=== PATIENT | female | born 1955 | race African-American/Black ===

== ENCOUNTER 2016-05-10 18:57 | Emergency (ER) | payer OTHER ==
[~2016-05-10] VITALS: Ht 162.6 cm; Wt 76.2 kg
[~2016-05-10 18:57] MED LIST: ACETAMINOPHEN-1 EAC1 ORAL; BENADRYL12.5 MG PO; COLACE100 MG ORAL; CYCLOBENZAPRINE10 MG ORAL; DICLOFENAC SODI75 MG ORAL; DOCUSATE SODIU100 MG PO; FUROSEMIDE20 M1 ORAL; FUROSEMIDE20 M1 PO; IBUPROFEN600 MG ORAL; KLONOPIN1 MG ORAL; LACTULOSE20 GM/301 ORAL; NAPROXEN500 M2 ORAL; NITROFURANTOIN100 M2 ORAL; NORCO 10-325 T1 EACH ORAL; NORCO 5-325 TA1 EACH ORAL; NORCO 5-325 TA1 EACH PO; NORVASC10 MG ORAL; NORVASC10 MG PO; NORVASC2.5 MG ORAL; NORVASC2.5 MG PO; ONDANSETRON ODT4 MG ORAL; PEPCID20 MG ORAL; PHENERGAN/CODE120 ML PO; PHENOBARBITAL; PHENOBARBITAL30 MG ORAL; POTASSIUM CHLO10 MEQ PO; QUETIAPINE FUMA25 MG PO; SEROQUEL200 MG ORAL; SEROQUEL25 MG ORAL; SEROQUEL400 MG ORAL; SOMA350 MG PO; TRAMADOL HCL50 MG ORAL; UNOBMED; VALACYCLOVIR500 MG ORAL; VIBRAMYCIN100 MG PO; VISTARIL50 MG ORAL; ZOFRAN ODT4 MG ORAL; ZOFRAN4 M1 ORAL; klonopin PO; phenobarbitol PO
[2016-05-10 19:21] VITALS: BP 135/87
[2016-05-10] MEDS ORDERED: Acetaminophen 500mg (ES) tab ORAL ONE ×2 (19:30→21:00)
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
[2016-05-10] MEDS ORDERED: TYLENOL EXTRA500 MG ORAL (20:43)
[2016-05-10 20:48] VITALS: BP 135/87
--- NOTE | 2016-05-11 10:07 | Diagnostic Imaging Report ---
Indications: hip pain Findings: Two views of the left hip were obtained. No acute fracture or malalignment appreciated. There is a deformity of the visualized portion of the left femoral shaft presumably from prior trauma. Impression: No acute injury identified
== END 2016-05-10 20:49 | disposition home or self-care (01) ==
LOC: EDBD 18:57 → EMR 19:00
DX: S70.02XA Contusion of left hip, initial encounter (principal); Y08.89XA Assault by other specified means, initial encounter; Y92.511 Restaurant or cafe as the place of occurrence of the external cause; I10 Essential (primary) hypertension; F20.9 Schizophrenia, unspecified
CPT/HCPCS: 73502; 99283

== ENCOUNTER 2016-07-06 07:09 | Emergency (ER) | payer OTHER ==
[~2016-07-06] VITALS: Ht 167.6 cm; Wt 104.3 kg
[~2016-07-06 07:09] MED LIST changes: +TYLENOL EXTRA500 MG ORAL
[2016-07-06] MEDS ORDERED: AMOXICILLIN500 MG ORAL (07:43)
[2016-07-06] MEDS ORDERED: PROMETHAZINE-D118 ML ORAL (07:43)
[2016-07-06 07:48] VITALS: BP 112/78
--- NOTE | 2016-07-06 07:51 | Emergency Room Report ---
History of Present Illness General Chief Complaint: Sore Throat Source: Patient Present Illness HPI Patient is a 60-year-old female presented after increased sore throat and cough. The patient gradual onsetOf symptoms associated with some intermittently productive cough. The patient had not been having any fever. She had gradual onset of low back pain. She denied any recent trauma. Patient had previous similar symptoms. She reported having increased postnasal drip with yellow colored sputum. She reported having some moderate facial pain. Allergies: Coded Allergies: No Known Allergies (Verified , 07/30/11) Patient History Past Medical History: see triage record Last Menstrual Period: na Reviewed Nursing Documentation: PMH: Agreed, PSxH: Agreed Nursing Documentation-PMH Past Medical History: No History, Except For Hx Cardiac Problems: Yes - HIGH CHOLESTEROL Hx Hypertension: Yes Hx Cancer: No Hx Gastrointestinal Problems: No Hx Neurological Problems: No - Chronic back pain, left knee absent Hx Seizures: No Hx Dizziness: Yes Review of Systems All Other Systems: negative except mentioned in HPI Physical Exam Vital Signs Date Time Temp Pulse Resp B/P Pulse Ox O2 Delivery O2 Flow Rate FiO2 07/06/16 07:18 98.2 88 20 112/78 99 Room Air General Appearance: well appearing, no apparent distress, alert, GCS 15 Head: normocephalic, atraumatic ENT: hearing grossly normal, normal pharynx, normal voice Neck: full range of motion, supple Respiratory: lungs clear, normal breath sounds, no respiratory distress, speaking full sentences Gastrointestinal: normal inspection, normal bowel sounds, non tender, soft Musculoskeletal: normal inspection, back normal, no calf tenderness Neurologic: normal inspection, alert, oriented x3, responsive, motor coach operator III-XII nml as tested, normal gait Psychiatric: normal inspection, mood/affect normal Skin: no rash Medical Decision Making Diagnostic Impression: Primary Impression: Opiate dependence Additional Impressions: Chronic back pain Pharyngitis ER Course Patient presented for sore throat.Differential diagnosis included but was not limited to meningitis, exudative tonsillitis, retropharyngeal abscess, epiglottitis, strep pharyngitis. Patient's benign exam and does not appear to require any further imaging or laboratory testing at this time. The patient presented chronic back pain this does not appear to require any narcotic pain medications. Patient was offered ibuprofen however she declined. The patient was given prescriptions for cough medication. The patient is advised to follow up with primary care doctor in 1-2 days. Patient is advised to return if any worsening condition or if any changes in status that are concerning. Last Vital Signs Date Time Temp Pulse Resp B/P Pulse Ox O2 Delivery O2 Flow Rate FiO2 07/06/16 07:18 98.2 88 20 112/78 99 Room Air Status: improved Disposition: HOME, SELF-CARE Condition: Stable Scripts Amoxicillin* (AMOXIL*) 500 Mg Capsule 500 MG ORAL THREE TIMES A DAY, #21 CAP Prov: Mingo Gaston 07/06/16 D-Methorphan Hb/Prometh Hcl* (PROMETHAZINE-DM SYRUP*) 118 Ml Syrup 5 ML ORAL Q6H Y for For Cough, #120 ML 0 Refills Prov: Mingo Gaston 07/06/16 Patient Instructions: Viral Respiratory Infection Mingo Gaston Jul 06, 2016 07:51
== END 2016-07-06 08:15 | disposition home or self-care (01) ==
LOC: EMR 07:52
DX: J02.9 Acute pharyngitis, unspecified (principal); G89.29 Other chronic pain; M54.9 Dorsalgia, unspecified; F11.20 Opioid dependence, uncomplicated; I10 Essential (primary) hypertension; E78.00 Pure hypercholesterolemia, unspecified
CPT/HCPCS: 99284

== ENCOUNTER 2016-09-07 10:25 | Emergency (ER) | payer OTHER ==
[~2016-09-07] VITALS: Ht 162.6 cm; Wt 77.1 kg
[2016-09-07 10:25] VITALS: BP 130/84
[~2016-09-07 10:25] MED LIST changes: +AMOXICILLIN500 MG ORAL; +PROMETHAZINE-D118 ML ORAL; +QUETIAPINE FUMA25 MG ORAL
[2016-09-07] MEDS ORDERED: Tylenol #4 Tab (300mg/60mg) ORAL ONE (10:45)
--- NOTE | 2016-09-07 10:57 | Emergency Room Report ---
History of Present Illness General Chief Complaint: General Complaint Source: Patient, Medical Record, EMS Present Illness HPI 61YOF BIBEMS with 3 days of left sided non-radiating chest pain. Worse with moving, worse with pushing on it. No associated fever/chills, SOB, abd pain, nausea/vomiting. Requesting refill for T#4 and Norvasc 10mg. Hasnt taken in 3 days. Doesnt currrently have PMD. History of HTN. Denies ETOH, smoking, drug use. Denies trauma. Allergies: Coded Allergies: No Known Allergies (Verified , 07/30/11) Patient History Past Medical History: HTN Past Surgical History: none Pertinent Family History: none Now: No Immunizations: UTD Reviewed Nursing Documentation: PMH: Agreed, PSxH: Agreed Nursing Documentation-PMH Past Medical History: No History, Except For Hx Cardiac Problems: Yes - HIGH CHOLESTEROL Hx Hypertension: Yes Hx Cancer: No Hx Gastrointestinal Problems: No History Of Psychiatric Problem: Yes Hx Neurological Problems: No - Chronic back pain, left knee absent Hx Seizures: No Hx Dizziness: Yes Review of Systems All Other Systems: negative except mentioned in HPI Physical Exam Vital Signs Date Time Temp Pulse Resp B/P Pulse Ox O2 Delivery O2 Flow Rate FiO2 09/07/16 10:18 98.4 100 20 130/84 100 Room Air Sp02 EP Interpretation: reviewed, normal General Appearance: normal inspection, well appearing, no apparent distress, alert, GCS 15, non-toxic, other - Very well appearing, smiling. Interactive from strether Head: normocephalic, atraumatic Eyes: bilateral eye EOMI, bilateral eye PERRL ENT: normal ENT inspection, hearing grossly normal, normal voice Neck: normal inspection, full range of motion, supple, no bony tend Respiratory: normal inspection, lungs clear, normal breath sounds, no respiratory distress, no retraction, no wheezing, other - Chest pain reproducible on palpation, chest symmetrical Cardiovascular #1: regular rate, rhythm, no edema Gastrointestinal: normal inspection, normal bowel sounds, non tender, soft, no guarding, no hernia Genitourinary: no CVA tenderness Musculoskeletal: normal inspection, back normal, normal range of motion, Kim' s Sign negative Neurologic: normal inspection, alert, oriented x3, responsive, psychological assistant III-XII nml as tested, motor strength/tone normal, speech normal Psychiatric: normal inspection, judgement/insight normal, mood/affect normal Skin: normal inspection Lymphatic: normal inspection Medical Decision Making Diagnostic Impression: Primary Impression: Chest wall pain Additional Impression: Encounter for medication refill ER Course Chest wall pain - VSS. Afebrile. - Reproducible, worse with movement. - 3 days duration. - ECG is NSR, no ischemia. Unlikely ACS - Lungs CTAB - no clinical signs of PNA - Hisory of narcotics seeking behavior and opiod dependence - Norvasc refileld - T#4 also refilled DC home EKG Diagnostic Results Rate: normal Rhythm: NSR ST Segments: no acute changes ASA given to the pt in ED: No Last Vital Signs Date Time Temp Pulse Resp B/P Pulse Ox O2 Delivery O2 Flow Rate FiO2 09/07/16 10:18 98.4 100 20 130/84 100 Room Air Status: improved Disposition: HOME, SELF-CARE Referrals: [facility],REFERRING (PCP) JOSÉ MIGUEL MARX M.D. September 07, 2016 10:57
[2016-09-07] MEDS ORDERED: NORVASC10 MG ORAL (10:59)
[2016-09-07] MEDS ORDERED: [UNRECOGNIZED DRUG - OTHER] PO (10:59)
[2016-09-07 11:15] VITALS: BP 130/84
--- NOTE | 2016-09-08 18:36 | Cardiology Report ---
APPROVED REPORT EKG Measurement Heart [id number] Normal sinus rhythm Possible Left atrial enlargement Low voltage QRS Borderline ECG
== END 2016-09-07 11:15 | disposition home or self-care (01) ==
LOC: EDBD 10:25 → EMR 10:40
DX: R07.9 Chest pain, unspecified (principal); Z76.0 Encounter for issue of repeat prescription; I10 Essential (primary) hypertension
CPT/HCPCS: 93005; 99283

== ENCOUNTER 2016-09-20 12:43 | Emergency (ER) | payer OTHER ==
[~2016-09-20] VITALS: Ht 167.6 cm; Wt 111.1 kg
[~2016-09-20 12:43] MED LIST changes: +[UNRECOGNIZED DRUG - OTHER] PO
[2016-09-20] MEDS ORDERED: SEROQUEL200 MG ORAL (13:16)
[2016-09-20] MEDS ORDERED: ROBAXIN-750750 MG PO (13:16)
[2016-09-20] MEDS ORDERED: NAPROXEN375 M2 ORAL (13:16)
[2016-09-20 13:17] VITALS: BP 130/90
--- NOTE | 2016-09-20 13:17 | Emergency Room Report ---
History of Present Illness General Chief Complaint: To Be Triaged Present Illness HPI 61 y/o female c/o med refill and chronic back pain x 2 months. States she is between PCPs and needs refill on 200mg Seroquel she takes 1 tab PO QHS. States she takes with good compliance w/o AE and with good control of anxiety / depression. States that she also has chronic back pain assoc w/ muscle spasms. States pain is worse with movement and better with heat and massage. Not taking any medications currently. No provoking or relieving factors. Denies any SI, HI , AH or VH. Denies any lower extremity weakness, incontinence, foot drop, saddle anesthesia, numbness, or paralysis. Allergies: Coded Allergies: No Known Allergies (Verified , 07/30/11) Patient History Past Medical History: see triage record Immunizations: UTD Reviewed Nursing Documentation: PMH: Agreed, PSxH: Agreed Nursing Documentation-PMH Hx Cardiac Problems: Yes - HIGH CHOLESTEROL Hx Hypertension: Yes Hx Cancer: No Hx Gastrointestinal Problems: No Hx Neurological Problems: No - Chronic back pain, left knee absent Hx Seizures: No Hx Dizziness: Yes Review of Systems All Other Systems: negative except mentioned in HPI Physical Exam Vital Signs Date Time Temp Pulse Resp B/P Pulse Ox O2 Delivery O2 Flow Rate FiO2 09/20/16 13:08 98.1 78 16 130/90 98 Room Air Sp02 EP Interpretation: reviewed, normal General Appearance: no apparent distress, alert, GCS 15, non-toxic Head: normocephalic, atraumatic Eyes: bilateral eye PERRL, bilateral eye normal inspection ENT: normal ENT inspection Neck: full range of motion, no bony tend, supple/symm/no masses Respiratory: chest non-tender, lungs clear, normal breath sounds, speaking full sentences Cardiovascular #1: regular rate, rhythm, no edema Musculoskeletal: back normal, gait/station normal, normal range of motion, tender - perispinal tenderness assoc w/ muscle spasms along lumbar and cervical spine Neurologic: alert, oriented x3, responsive, motor strength/tone normal, sensory intact, speech normal Psychiatric: judgement/insight normal, memory normal, mood/affect normal, no suicidal/homicidal ideation Skin: normal color, no rash, warm/dry, well hydrated Medical Decision Making PA Attestation Dr. Davison is my supervising physician with whom patient management has been discussed with. Diagnostic Impression: Primary Impression: Lumbago Qualified Codes: M54.5 - Low back pain; G89.29 - Other chronic pain Additional Impressions: Cervicalgia Muscle spasm of back Medication refill ER Course Pt. presents to the ED c/o med refill and back pain Ddx considered but are not limited to sciatica, spinal stenosis, contusion, fracture, muscle spasm, strain Vital signs: are WNL, pt. is afebrile H&PE are most consistent with muscle spasm ORDERS: none required at this time, the diagnosis is clinical ED INTERVENTIONS: none required at this time. DISCHARGE: At this time pt. is stable for d/c to home. Will provide printed patient care instructions, and any necessary prescriptions. Care plan and follow up instructions have been discussed with the patient prior to discharge. Disposition: HOME, SELF-CARE Condition: Stable Scripts Naproxen* (NAPROXEN*) 375 Mg Tablet.dr 375 MG ORAL TWICE A DAY, #20 TAB Prov: RADHA BRADY.ASpencer 09/20/16 Methocarbamol* (ROBAXIN-750*) 750 Mg Tablet 750 MG PO TID, #30 TAB 0 Refills Prov: RADHA BRADY P.A. 09/20/16 Quetiapine Fumarate* (SEROQUEL*) 200 Mg Tablet 200 MG ORAL QHS, #15 TAB Prov: RADHA BRADY P.A. 09/20/16 Patient Instructions: Muscle Cramps and Spasms Additional Instructions: Take medication as directed. Advise patient to use RICE therapy and avoid exercises for the next 2-3 weeks to help rest the back. Patient instructed to massage the muscles that are tight or tense, put ice for 5-7 minutes or a frozen bag of peas or cold gel pack on the area for 20 minutes at a time, a few times a day, put heat on the area to reduce pain and stiffness by either taking a hot shower or hot bath, or put a hot towel on the area for no more than 20 minutes at a time. Patient instructed to not use anything too hot that could burn your skin. RADHA BRADY Sep 20, 2016 13:17
[2016-09-20] MEDS ORDERED: Norco 5mg/325mg tab ORAL ONE (13:30)
== END 2016-09-20 13:50 | disposition home or self-care (01) ==
LOC: EMR 13:10
DX: G89.29 Other chronic pain (principal); M54.5 Low back pain; M54.2 Cervicalgia; M62.830 Muscle spasm of back; Z76.0 Encounter for issue of repeat prescription; I10 Essential (primary) hypertension; Z89.522 Acquired absence of left knee
CPT/HCPCS: 99284

== ENCOUNTER 2016-11-24 12:47 | Emergency (ER) | payer OTHER ==
[~2016-11-24] VITALS: Ht 170.2 cm; Wt 122.5 kg
[~2016-11-24 12:47] MED LIST changes: +NAPROXEN375 M2 ORAL; +ROBAXIN-750750 MG PO
[2016-11-24 13:01] VITALS: BP 138/83
[2016-11-24] MEDS ORDERED: AMLODIPINE BESY10 MG ORAL (13:49)
[2016-11-24 13:55] VITALS: BP 138/83
--- NOTE | 2016-11-24 13:59 | Emergency Room Report ---
History of Present Illness General Chief Complaint: Medication Refill Source: Patient Present Illness HPI 61 yo F hx of chronic back pain, HTN, p/w medication refill. states she has not had her norvasc x 4 days. she has been taking 10mg daily x 10 years as per patient. she does not have a PMD but is trying to get one from [facility]. she has been to the ED multiple times for various complaints. today denies any fever chills cp sob abd pain. no complaint except requesting med refill Allergies: Coded Allergies: No Known Allergies (Verified , 07/30/11) Patient History Past Medical History: see triage record Past Surgical History: none Now: No Nursing Documentation-PMH Hx Cardiac Problems: No Hx Hypertension: Yes Hx Pacemaker: No Hx Asthma: No Hx COPD: No Hx Diabetes: No Hx Cancer: No Hx Gastrointestinal Problems: No Hx Dialysis: No Hx Seizures: No Hx Dizziness: Yes Physical Exam Vital Signs Date Time Temp Pulse Resp B/P Pulse Ox O2 Delivery O2 Flow Rate FiO2 11/24/16 12:57 98.4 80 14 138/83 95 Room Air General Appearance: normal inspection, well appearing, no apparent distress, alert, GCS 15, non-toxic Head: normocephalic, atraumatic Eyes: bilateral eye EOMI, bilateral eye PERRL, bilateral eye normal inspection ENT: normal ENT inspection, normal pharynx, normal voice, moist mucus membranes Neck: normal inspection, full range of motion, supple, no bony tend Respiratory: normal inspection, lungs clear, normal breath sounds, no respiratory distress, no retraction, no wheezing, speaking full sentences, chest symmetrical Cardiovascular #1: normal inspection, regular rate, rhythm, no edema, normal capillary refill Gastrointestinal: normal inspection, non tender, soft, non-distended, no guarding Musculoskeletal: normal inspection, back normal, normal range of motion, non- tender Neurologic: normal inspection, alert, oriented x3, responsive, data analytics architect III-XII nml as tested, motor strength/tone normal, sensory intact, normal gait, speech normal Medical Decision Making Diagnostic Impression: Primary Impression: Encounter for medication refill ER Course 61 yo F here to med refill for norvasc norvasc rx, pmd follow up Last Vital Signs Date Time Temp Pulse Resp B/P Pulse Ox O2 Delivery O2 Flow Rate FiO2 11/24/16 13:01 98.4 80 14 138/83 95 Room Air Disposition: HOME, SELF-CARE Condition: Stable Scripts Amlodipine Besylate* (AMLODIPINE BESYLATE*) 10 Mg Tablet 10 MG ORAL DAILY for 30 Days, #30 TAB Prov: Suzy Crow M.D. 11/24/16 Patient Instructions: Medicine Refill at the Emergency Department Suzy Crow M.D. Nov 24, 2016 13:59
== END 2016-11-24 14:00 | disposition home or self-care (01) ==
LOC: EMR 13:36
DX: I10 Essential (primary) hypertension (principal); Z76.0 Encounter for issue of repeat prescription; G89.29 Other chronic pain
CPT/HCPCS: 99282

== ENCOUNTER 2016-12-08 16:22 | Emergency (ER) | payer OTHER ==
[~2016-12-08] VITALS: Ht 167.6 cm; Wt 113.4 kg
[~2016-12-08 16:22] MED LIST changes: +AMLODIPINE BESY10 MG ORAL
[2016-12-08 17:22] LABS: BASOPHILS % (AUTO) 1.7 % (0.0-2.0); EOSINOPHILS % (AUTO) 0.2 % (0.0-3.0); LYMPHOCYTES % (AUTO) 33.2 % (20.0-45.0); MEAN CORPUSCULAR HEMOGLOBIN 34.5 PG (27.0-31.0); MEAN CORPUSCULAR VOLUME 96 FL (80-99); MEAN PLATELET VOLUME 5.9 FL (6.5-10.1); MONOCYTES % (AUTO) 9.1 % (1.0-10.0); NEUTROPHILS % (AUTO) 55.8 % (45.0-75.0); PLATELET COUNT 272 K/UL (150-450); RED BLOOD COUNT 4.12 M/UL (4.20-5.40); RED CELL DISTRIBUTION WIDTH 11.6 % (11.6-14.8); WHITE BLOOD COUNT 4.7 K/UL (4.8-10.8)
[2016-12-08 17:25] LABS: APPEARANCE,URINE SLIGHTLY CLOUDY; KETONES,URINE 1+ (NEGATIVE); LEUKOCYTE ESTERASE ,URINE 3+ (NEGATIVE); NITRITE,URINE NEGATIVE (NEGATIVE); PH,URINE 5 (4.5-8.0); PROTEIN,URINE 2+ (NEGATIVE); UROBILINOGEN,URINE 4 MG/DL (0.0-1.0)
[2016-12-08 17:35] LABS: PROTHROMBIN TIME 10.6 SEC (9.30-11.50)
[2016-12-08 17:44] LABS: ALANINE AMINOTRANSFERASE 8 U/L (3-33); ALBUMIN/GLOBULIN RATIO 1.5 (1.0-2.7); AMYLASE 72 U/L (10-110); ANION GAP 15 (5-15); ASPARTATE AMINO TRANSFERASE 13 U/L (5-40); CARBON DIOXIDE 25 mEQ/L (20-30); CHLORIDE 103 mEQ/L (98-107); CREATININE 0.9 mg/dL (0.5-0.9); GLOMERULAR FILTRATION RATE > 60 mL/min (>60); HEMOLYSIS 26; LIPASE 26 U/L (< 60); POTASSIUM 3.9 mEQ/L (3.4-4.9); SODIUM 143 mEQ/L (135-145); TOTAL PROTEIN 7.7 g/dL (6.6-8.7)
[2016-12-08 17:48] LABS: AMORPHOUS SEDIMENT,UR FEW /LPF; BACTERIA,URINE MODERATE /HPF; ICTOTEST NEGATIVE; RBC,URINE 0-2 /HPF (0 - 2); SQUAMOUS EPITHELIAL CELL,UR FEW /LPF (NONE/OCC)
[2016-12-08] MEDS ORDERED: Morphine Sulfate 2mg/ml Inj IVP ONE (18:00)
[2016-12-08] MEDS ORDERED: NITROFURANTOIN100 M2 ORAL (18:03)
[2016-12-08] MEDS ORDERED: ACETAMINOPHEN-1 EAC1 ORAL (18:03)
[2016-12-08 18:36] VITALS: BP 153/78
--- NOTE | 2016-12-08 22:00 | Emergency Room Report ---
History of Present Illness General Chief Complaint: Abdominal Pain Source: Patient, Medical Record Present Illness HPI The patient is a 61-year-old f visiting for abd pain. She states that she has a history of pancreatitis and pain began 2 months prior. Pain is described as an 8/10 dull ache in the mid/left upper abdomen and does not radiate. She also admits to dysuria. No known provoking or relieving factors. She denies other symptoms including nausea, vomiting, fever, chills, CP, SOB Allergies: Coded Allergies: No Known Allergies (Verified , 07/30/11) Patient History Past Medical History: see triage record Pertinent Family History: none Reviewed Nursing Documentation: PMH: Agreed, PSxH: Agreed Nursing Documentation-PMH Past Medical History: No History, Except For Hx Cardiac Problems: No Hx Hypertension: Yes - High cholesterol Hx Pacemaker: No Hx Asthma: No Hx COPD: No Hx Diabetes: No Hx Cancer: No Hx Dialysis: No Hx Seizures: No Hx Dizziness: Yes Review of Systems All Other Systems: negative except mentioned in HPI Physical Exam Vital Signs Date Time Temp Pulse Resp B/P Pulse Ox O2 Delivery O2 Flow Rate FiO2 12/08/16 16:34 99.3 113 16 134/81 96 12/08/16 18:36 Room Air Sp02 EP Interpretation: reviewed, normal General Appearance: no apparent distress, alert, GCS 15, non-toxic Head: normocephalic, atraumatic Eyes: bilateral eye PERRL, bilateral eye normal inspection ENT: hearing grossly normal, normal pharynx, no angioedema, normal voice Neck: full range of motion, supple/symm/no masses Respiratory: chest non-tender, lungs clear, normal breath sounds, no accessory muscle use, speaking full sentences Cardiovascular #1: regular rate, rhythm, no edema Gastrointestinal: soft, no mass, no guarding, tenderness - TTP over the suprapubic and epigastric regions Rectal: deferred Musculoskeletal: back normal, gait/station normal, normal range of motion, non- tender Neurologic: alert, oriented x3, responsive, motor strength/tone normal, sensory intact, speech normal Psychiatric: judgement/insight normal, memory normal, mood/affect normal, no suicidal/homicidal ideation Skin: normal color, no rash, warm/dry, well hydrated Lymphatic: no adenopathy Medical Decision Making PA Attestation Dr. Alaniz is my supervising physician. Patient management was discussed with my supervising physician Diagnostic Impression: Primary Impression: UTI (urinary tract infection) Qualified Codes: N30.01 - Acute cystitis with hematuria ER Course The patient is a 61-year-old female presenting for abdominal pain Differential diagnoses considered include but not limited to gastritis, pancreatitis, appendicitis, UTI, among others Physical exam: Afebrile. No apparent distress There is tenderness to palpation over the epigastric and suprapubic regions only. No guarding. Nondistended. No CVA tenderness. Otherwise unremarkable Labs: All blood work is unremarkable. No leukocytosis. Lipase within normal limits. Urinalysis shows signs of infection The patient will be discharged home with a prescription for antibiotics. ER precautions are given Laboratory Tests Test 12/08/16 17:09 White Blood Count 4.7 K/UL (4.8-10.8) L Red Blood Count 4.12 M/UL (4.20-5.40) L Hemoglobin 14.2 G/DL (12.0-16.0) Hematocrit 39.4 % (37.0-47.0) Mean Corpuscular Volume 96 FL (80-99) Mean Corpuscular Hemoglobin 34.5 PG (27.0-31.0) H Mean Corpuscular Hemoglobin Concent 36.0 G/DL (32.0-36.0) Red Cell Distribution Width 11.6 % (11.6-14.8) Platelet Count 272 K/UL (150-450) Mean Platelet Volume 5.9 FL (6.5-10.1) L Neutrophils (%) (Auto) 55.8 % (45.0-75.0) Lymphocytes (%) (Auto) 33.2 % (20.0-45.0) Monocytes (%) (Auto) 9.1 % (1.0-10.0) Eosinophils (%) (Auto) 0.2 % (0.0-3.0) Basophils (%) (Auto) 1.7 % (0.0-2.0) Prothrombin Time 10.6 SEC (9.30-11.50) Prothrombin Time INR 1.0 (0.9-1.1) PTT 25 SEC (23-33) Urine Color Brown Urine Appearance Slightly cloudy Urine pH 5 (4.5-8.0) Urine Specific [place] 1.025 (1.005-1.035) Urine Protein 2+ (NEGATIVE) H Urine Glucose (UA) Negative (NEGATIVE) Urine Ketones 1+ (NEGATIVE) H Urine Occult Blood Negative (NEGATIVE) Urine Nitrite Negative (NEGATIVE) Urine Bilirubin 1+ (NEGATIVE) H Urine Ictotest Negative Urine Urobilinogen 4 MG/DL (0.0-1.0) H Urine Leukocyte Esterase 3+ (NEGATIVE) H Urine RBC 0-2 /HPF (0 - 2) Urine WBC 5-10 /HPF (0 - 2) H Urine Squamous Epithelial Cells Few /LPF (NONE/OCC) Urine Amorphous Sediment Few /LPF (NONE) H Urine Bacteria Moderate /HPF (NONE) H Sodium Level 143 mEQ/L (135-145) Potassium Level 3.9 mEQ/L (3.4-4.9) Chloride Level 103 mEQ/L (98-107) Carbon Dioxide Level 25 mEQ/L (20-30) Anion Gap 15 (5-15) Blood Urea Nitrogen 17 mg/dL (7-23) Creatinine 0.9 mg/dL (0.5-0.9) Estimate Glomerular Filtration Rate > 60 mL/min (>60) Glucose Level 138 mg/dL (74-106) H Calcium Level 10.0 mg/dL (8.6-10.2) Total Bilirubin 0.4 mg/dL (0.0-1.2) Aspartate Amino Transferase (AST) 13 U/L (5-40) Alanine Aminotransferase (ALT) 8 U/L (3-33) Alkaline Phosphatase 77 U/L (35-104) Total Protein 7.7 g/dL (6.6-8.7) Albumin 4.7 g/dL (3.5-5.2) Globulin 3.0 g/dL Albumin/Globulin Ratio 1.5 (1.0-2.7) Amylase Level 72 U/L (10-110) Lipase 26 U/L (< 60) Lab Results Impression All blood work is unremarkable. No leukocytosis. Lipase within normal limits. Urinalysis shows signs of infection Last Vital Signs Date Time Temp Pulse Resp B/P Pulse Ox O2 Delivery O2 Flow Rate FiO2 12/08/16 18:36 93 20 153/78 98 Room Air 12/08/16 18:36 99.0 Status: improved Disposition: HOME, SELF-CARE Condition: Improved Scripts Nitrofurantoin Monohyd/M-Cryst* (MACROBID 100 MG*) 100 Mg Capsule 100 MG ORAL EVERY 12 HOURS, #14 CAP Prov: LESLYE NICHOLAS 12/08/16 Acetaminophen With Codeine (T#3) (TYLENOL #3 TAB*) Y Tab 1 TAB ORAL Q6HR Y for For Pain, #10 TAB Prov: LESLYE NICHOLAS 12/08/16 Referrals: [facility],REFERRING (PCP) Patient Instructions: Urinary Tract Infection Additional Instructions: I discussed my findings with the patient. All questions and concerns have been answered. Treatment and medication compliance have been addressed. I advised the patient that they need to follow up with PMD in 3-5 days. Return to ED if symptoms worsen, new symptoms arise, or if needed for any reason. Patient verbalized understanding of discharge instructions. LESLYE NICHOLAS Dec 08, 2016 22:00
== END 2016-12-08 18:40 | disposition home or self-care (01) ==
LOC: EMR 16:52
DX: N39.0 Urinary tract infection, site not specified (principal); I10 Essential (primary) hypertension
CPT/HCPCS: 36415; 80053; 81003; 82150; 83690; 85025; 85610; 85730; 87086; 96374; 96375; 99284; J2270

== ENCOUNTER 2016-12-17 14:52 | Emergency (ER) | payer OTHER ==
[~2016-12-17] VITALS: Ht 167.6 cm; Wt 122.5 kg
[2016-12-17] MEDS ORDERED: Lidocaine 2% Visc 15ml soln ORAL ONE (15:15)
[2016-12-17] MEDS ORDERED: Mylanta II UD 30ml ORAL ONE (15:15)
[2016-12-17] MEDS ORDERED: Dicyclomine HCl 10mg/5ml oral soln ORAL ONE (15:15)
[2016-12-17 15:44] LABS: APPEARANCE,URINE CLEAR; KETONES,URINE 3+ (NEGATIVE); LEUKOCYTE ESTERASE ,URINE 3+ (NEGATIVE); NITRITE,URINE NEGATIVE (NEGATIVE); PH,URINE 5 (4.5-8.0); PROTEIN,URINE 2+ (NEGATIVE); UROBILINOGEN,URINE NORMAL MG/DL (0.0-1.0)
[2016-12-17 15:47] LABS: ICTOTEST POSITIVE
[2016-12-17 15:49] LABS: BASOPHILS % (AUTO) 1.4 % (0.0-2.0); EOSINOPHILS % (AUTO) 0.2 % (0.0-3.0); LYMPHOCYTES % (AUTO) 31.1 % (20.0-45.0); MEAN CORPUSCULAR HEMOGLOBIN 35.1 PG (27.0-31.0); MEAN CORPUSCULAR HGB CONC 37.4 G/DL (32.0-36.0); MEAN CORPUSCULAR VOLUME 94 FL (80-99); MEAN PLATELET VOLUME 6.3 FL (6.5-10.1); MONOCYTES % (AUTO) 9.2 % (1.0-10.0); NEUTROPHILS % (AUTO) 58.1 % (45.0-75.0); PLATELET COUNT 225 K/UL (150-450); RED BLOOD COUNT 3.76 M/UL (4.20-5.40); RED CELL DISTRIBUTION WIDTH 11.6 % (11.6-14.8); WHITE BLOOD COUNT 5.3 K/UL (4.8-10.8)
[2016-12-17 15:52] LABS: BACTERIA,URINE FEW /HPF; MUCUS,URINE MANY /LPF (NONE/OCC); SQUAMOUS EPITHELIAL CELL,UR FEW /LPF (NONE/OCC)
[2016-12-17 15:54] LABS: ALANINE AMINOTRANSFERASE 6 U/L (3-33); ALBUMIN/GLOBULIN RATIO 1.3 (1.0-2.7); ANION GAP 14 (5-15); ASPARTATE AMINO TRANSFERASE 9 U/L (5-40); CALCIUM 9.3 mg/dL (8.6-10.2); CARBON DIOXIDE 24 mEQ/L (20-30); CHLORIDE 103 mEQ/L (98-107); CREATININE 0.8 mg/dL (0.5-0.9); GLOMERULAR FILTRATION RATE > 60 mL/min (>60); HEMOLYSIS 4; LIPASE 26 U/L (< 60); SODIUM 141 mEQ/L (135-145); TOTAL PROTEIN 6.7 g/dL (6.6-8.7)
[2016-12-17] MEDS ORDERED: Phenazopyridine 200mg tab ORAL ONE (16:15)
--- NOTE | 2016-12-17 16:17 | Emergency Room Report ---
History of Present Illness General Chief Complaint: Abdominal Pain Source: Patient Present Illness HPI 61-year-old female presents to the emergency department complaining of epigastric, and right upper quadrant abdominal pain that is 8/10 in severity and described as cramping. Patient denies fevers, chills, nausea, vomiting. Patient reports history of chronic pancreatitis as well as history of GERD. reports recent abx use for UTI, however continues to have dysuria and frequency. Denies constipation, diarrhea, blood in the stool, or black tarry stools. Denies recent travel or ill contacts. Denies rash. Denies CP, Palpitations, LOC, AMS, dizziness, Changes in Vision, Sensation, paresthesias, or a sudden severe headache. Allergies: Coded Allergies: No Known Allergies (Verified , 07/30/11) Patient History Past Medical History: see triage record Past Surgical History: none Pertinent Family History: none Now: No Immunizations: UTD Reviewed Nursing Documentation: PMH: Agreed, PSxH: Agreed Nursing Documentation-PMH Past Medical History: No History, Except For Hx Cardiac Problems: Yes Hx Hypertension: Yes Hx Pacemaker: No Hx Asthma: No Hx COPD: No Hx Diabetes: No Hx Cancer: No Hx Dialysis: No Hx Seizures: Yes Hx Dizziness: Yes Review of Systems All Other Systems: negative except mentioned in HPI Physical Exam Vital Signs Date Time Temp Pulse Resp B/P (MAP) Pulse Ox O2 Delivery O2 Flow Rate FiO2 12/17/16 14:47 97.7 108 16 116/73 99 Room Air Sp02 EP Interpretation: reviewed, normal General Appearance: no apparent distress, alert, GCS 15, non-toxic Head: normocephalic, atraumatic Eyes: bilateral eye normal inspection, bilateral eye PERRL ENT: hearing grossly normal, normal voice Neck: full range of motion Respiratory: lungs clear, normal breath sounds, speaking full sentences Cardiovascular #1: regular rate, rhythm Gastrointestinal: normal bowel sounds, soft, no guarding, no rebound, tenderness - mild ttp to deep palpation in the epigastric area., other - Negative [place] signs, Negative MacBurney's sign, Negative Rosvigns Sign, Negative Psoas, No Peritoneal signs. mild ttp to deep palpation in the epigastric area. Rectal: deferred Genitourinary: normal inspection, no CVA tenderness Musculoskeletal: back normal, gait/station normal, normal range of motion, non- tender Neurologic: alert, oriented x3, responsive, motor strength/tone normal, sensory intact, speech normal Psychiatric: judgement/insight normal, memory normal, mood/affect normal, no suicidal/homicidal ideation Reflexes: 4+ bicep (R), 4+ bicep (L), 4+ tricep (R), 4+ tricep (L), 4+ knee (R) , 4+ knee (L) Skin: normal color, no rash, warm/dry, well hydrated Lymphatic: no adenopathy Medical Decision Making PA Attestation Dr. Davison is my supervising Physician whom patient management has been discussed with. Diagnostic Impression: Primary Impression: Abdominal pain Qualified Codes: R10.11 - Right upper quadrant pain Additional Impression: UTI (urinary tract infection) Qualified Codes: N30.01 - Acute cystitis with hematuria ER Course 61-year-old female presents to the emergency department complaining of epigastric, and right upper quadrant abdominal pain that is 8/10 in severity and described as cramping. Patient denies fevers, chills, nausea, vomiting. Patient reports history of chronic pancreatitis as well as history of GERD. reports recent abx use for UTI, however continues to have dysuria and frequency. Denies constipation, diarrhea, blood in the stool, or black tarry stools. Denies recent travel or ill contacts. Denies rash. Denies CP, Palpitations, LOC, AMS, dizziness, Changes in Vision, Sensation, paresthesias, or a sudden severe headache. Ddx considered but are not limited to Diverticulitis, acute appy, diarrhea,UC, PUD, GE, pancreatitis, gallstone Vital signs: are WNL, pt. is afebrile, NAD, non-toxic in appearance. H&PE are most consistent with gastritis, I do not suspect gallbladder etiology due to benign physical exam, and pancreatitis is of low suspicion given pt. previous work up last week for same cc was unremarkable, will do basic abdominal labs. CT or US not indicated at this time. ORDERS: -CBC, CMP, lipase, -UA: moderate elevated WBC's and Leukocytes with presence of bacteria indicating continued infection. ED INTERVENTIONS: -GI Cocktail -Zantac PO -Pyridium PO Pt. is well known to the ED for drug seeking-behavior. review of pt. previous labs done last week were unremarkable other than UTI. - final culture shows mixed gram positive bacteria. Pt. was rx. Macrobid which is gram negative coverage, will give pt. Keflex. DISCHARGE: At this time pt. is stable for d/c to home. Will provide printed patient care instructions, and any necessary prescriptions. Care plan and follow up instructions have been discussed with the patient prior to discharge. Labs Test 12/17/16 15:15 White Blood Count 5.3 K/UL (4.8-10.8) Red Blood Count 3.76 M/UL (4.20-5.40) Hemoglobin 13.2 G/DL (12.0-16.0) Hematocrit 35.4 % (37.0-47.0) Mean Corpuscular Volume 94 FL (80-99) Mean Corpuscular Hemoglobin 35.1 PG (27.0-31.0) Mean Corpuscular Hemoglobin Concent 37.4 G/DL (32.0-36.0) Red Cell Distribution Width 11.6 % (11.6-14.8) Platelet Count 225 K/UL (150-450) Mean Platelet Volume 6.3 FL (6.5-10.1) Neutrophils (%) (Auto) 58.1 % (45.0-75.0) Lymphocytes (%) (Auto) 31.1 % (20.0-45.0) Monocytes (%) (Auto) 9.2 % (1.0-10.0) Eosinophils (%) (Auto) 0.2 % (0.0-3.0) Basophils (%) (Auto) 1.4 % (0.0-2.0) Urine Color Nisa Urine Appearance Clear Urine pH 5 (4.5-8.0) Urine Specific [place] 1.025 (1.005-1.035) Urine Protein 2+ (NEGATIVE) Urine Glucose (UA) Negative (NEGATIVE) Urine Ketones 3+ (NEGATIVE) Urine Occult Blood Negative (NEGATIVE) Urine Nitrite Negative (NEGATIVE) Urine Bilirubin 1+ (NEGATIVE) Urine Ictotest Positive Urine Urobilinogen Normal MG/DL (0.0-1.0) Urine Leukocyte Esterase 3+ (NEGATIVE) Urine RBC 10-15 /HPF (0 - 2) Urine WBC 5-10 /HPF (0 - 2) Urine Squamous Epithelial Cells Few /LPF (NONE/OCC) Urine Bacteria Few /HPF (NONE) Urine Mucus Many /LPF (NONE/OCC) Sodium Level 141 mEQ/L (135-145) Potassium Level 3.0 mEQ/L (3.4-4.9) Chloride Level 103 mEQ/L (98-107) Carbon Dioxide Level 24 mEQ/L (20-30) Anion Gap 14 (5-15) Blood Urea Nitrogen 11 mg/dL (7-23) Creatinine 0.8 mg/dL (0.5-0.9) Estimat Glomerular Filtration Rate > 60 mL/min (>60) Glucose Level 74 mg/dL (74-106) Calcium Level 9.3 mg/dL (8.6-10.2) Total Bilirubin 0.3 mg/dL (0.0-1.2) Aspartate Amino Transf (AST/SGOT) 9 U/L (5-40) Alanine Aminotransferase (ALT/SGPT) 6 U/L (3-33) Alkaline Phosphatase 67 U/L (35-104) Total Protein 6.7 g/dL (6.6-8.7) Albumin 3.8 g/dL (3.5-5.2) Globulin 2.9 g/dL Albumin/Globulin Ratio 1.3 (1.0-2.7) Lipase 26 U/L (< 60) Last Vital Signs Date Time Temp Pulse Resp B/P (MAP) Pulse Ox O2 Delivery O2 Flow Rate FiO2 12/17/16 14:47 97.7 108 16 116/73 99 Room Air Disposition: HOME, SELF-CARE Condition: Stable Scripts Lidocaine HCl 2% Viscous (Lidocaine HCl 2% Viscous) 100 Ml Solution 15 ML ORAL TID Y for For Pain, #120 ML Prov: Anisha Choe P.ASpencer 12/17/16 Ranitidine Hcl* (ZANTAC*) 150 Mg Tablet 150 MG ORAL TWICE A DAY for 15 Days, #30 TAB Prov: Anisha Choe P.A. 12/17/16 Phenazopyridine Hcl* (PYRIDIUM*) 200 Mg Tablet 200 MG ORAL THREE TIMES A DAY for 3 Days, #3 TAB 0 Refills Prov: Anisha Choe P.ASpencer 12/17/16 Cephalexin* (KEFLEX*) 500 Mg Capsule 500 MG ORAL EVERY 12 HOURS for 7 Days, #14 CAP 0 Refills Prov: Anisha Choe P.ASpencer 12/17/16 Referrals: [facility],REFERRING (PCP) Patient Instructions: Abdominal Pain, Adult, Urinary Tract Infection, Easy-to- Read Additional Instructions: Take medications as directed. Follow up with a Primary Care Provider in 3-5 days, even if your symptoms have resolved. --Please review list of primary care clinics, if you do not already have a primary care provider Return sooner to ED if new symptoms occur, or current symptoms become worse. - Please note that this Emergency Department Report was dictated using [employer]anasupervisor grips technology software, occasionally this can lead to erroneous entry secondary to interpretation by the dictation equipment. Anisha Choe Dec 17, 2016 16:17
[2016-12-17] MEDS ORDERED: CEPHALEXIN500 MG ORAL (16:18)
[2016-12-17] MEDS ORDERED: PHENAZOPYRIDIN200 MG ORAL (16:18)
[2016-12-17] MEDS ORDERED: ZANTAC150 MG ORAL (16:22)
[2016-12-17] MEDS ORDERED: LIDOCAINE VISC100 ML ORAL (16:22)
[2016-12-17 16:44] VITALS: BP 116/73
== END 2016-12-17 16:51 | disposition home or self-care (01) ==
LOC: EDBD 14:52 → EMR 15:26
DX: R10.11 Right upper quadrant pain (principal); N39.0 Urinary tract infection, site not specified; R30.0 Dysuria; R35.0 Frequency of micturition; K86.1 Other chronic pancreatitis; K21.9 Gastro-esophageal reflux disease without esophagitis; I10 Essential (primary) hypertension; Z86.79 Personal history of other diseases of the circulatory system; Z86.69 Personal history of other diseases of the nervous system and sense organs
CPT/HCPCS: 36415; 80053; 81003; 83690; 85025; 99284

== ENCOUNTER 2016-12-21 23:05 | Emergency (ER) | payer OTHER ==
[~2016-12-21] VITALS: Ht 167.6 cm; Wt 122.5 kg
[~2016-12-21 23:05] MED LIST changes: +CEPHALEXIN500 MG ORAL; +LIDOCAINE VISC100 ML ORAL; +PHENAZOPYRIDIN200 MG ORAL; +ZANTAC150 MG ORAL
--- NOTE | 2016-12-22 00:09 | Emergency Room Report ---
History of Present Illness General Chief Complaint: Lower Back Pain or Injury Source: Patient Present Illness HPI Is a 61-year-old female who has a history of chronic pain. She's been here numerous times for different pain complaint. Workup has always been unremarkable. Patient complaining of lower back pain. She said this happened yesterday when she was trying to get out of bed. No trauma. Pain is 9/10. No fever or chills. No incontinence of bowel or urine. No radiation. Denies any other complaint. she said that she is out of her pain medication. Allergies: Coded Allergies: No Known Allergies (Verified , 07/30/11) Patient History Past Medical History: see triage record, old chart reviewed Past Surgical History: other Pertinent Family History: none Social History: Reports: smoking Last Menstrual Period: NONE Now: No Immunizations: other Reviewed Nursing Documentation: PMH: Agreed, PSxH: Agreed Nursing Documentation-PMH Hx Cardiac Problems: Yes Hx Hypertension: Yes Hx Pacemaker: No Hx Asthma: No Hx COPD: No Hx Diabetes: No Hx Cancer: No Hx Dialysis: No Hx Seizures: Yes Hx Dizziness: Yes Review of Systems Eye: Denies: eye pain, blurred vision ENT: Denies: ear pain, nose congestion, throat swelling Respiratory: Denies: cough, shortness of breath Cardiovascular: Denies: chest pain, palpitations Gastrointestinal: Denies: abdominal pain, diarrhea, nausea, vomiting Musculoskeletal: Reports: back pain, Denies: joint pain Skin: Denies: rash Neurological: Denies: headache, numbness Endocrine: Denies: increased thirst, increased urine Hematologic/Lymphatic: Denies: easy bruising All Other Systems: negative except mentioned in HPI Physical Exam Vital Signs Date Time Temp Pulse Resp B/P (MAP) Pulse Ox O2 Delivery O2 Flow Rate FiO2 12/21/16 23:21 98.2 81 18 143/79 98 vitals normal Sp02 EP Interpretation: reviewed, normal General Appearance: well appearing, no apparent distress, alert, other - Patient layingcomfortably w sunglasses Head: normocephalic, atraumatic Eyes: bilateral eye PERRL, bilateral eye EOMI ENT: hearing grossly normal, normal pharynx Neck: full range of motion, supple, no meningismus Respiratory: chest non-tender, lungs clear, normal breath sounds Cardiovascular #1: regular rate, rhythm, no murmur Gastrointestinal: normal bowel sounds, non tender, no mass, no organomegaly, no bruit, non-distended Musculoskeletal: back normal, gait/station normal, normal range of motion Psychiatric: mood/affect normal Skin: warm/dry Medical Decision Making Diagnostic Impression: Primary Impression: Low back pain Qualified Codes: M54.5 - Low back pain Additional Impressions: Chronic pain Qualified Codes: G89.4 - Chronic pain syndrome Morbid obesity with BMI of 40.0-44.9, adult ER Course She with lower back pain. No evidence of cauda equina syndrome, spinal after abscess or neoplastic process. When I of her Motrin she refused said that she allergic to it. She said she will be leaving. She got up and walk without any difficulty. Last Vital Signs Date Time Temp Pulse Resp B/P (MAP) Pulse Ox O2 Delivery O2 Flow Rate FiO2 12/21/16 23:21 98.2 81 18 143/79 98 Status: unchanged Disposition: HOME, SELF-CARE Condition: Stable Referrals: [facility],REFERRING (PCP) Patient Instructions: Back Pain, Adult Additional Instructions: followup with your DrSpencer in 7 days. Return if symptom worsen. BONNIE HASKINS M.D. Dec 22, 2016 00:09
[2016-12-22 00:10] VITALS: BP 0/0
== END 2016-12-22 00:10 | disposition home or self-care (01) ==
LOC: EMR 23:35
DX: M54.5 Low back pain (principal); G89.29 Other chronic pain; E66.01 Morbid (severe) obesity due to excess calories; Z68.41 Body mass index [BMI] 40.0-44.9, adult; I10 Essential (primary) hypertension; F17.200 Nicotine dependence, unspecified, uncomplicated
CPT/HCPCS: 99283

== ENCOUNTER 2017-01-03 12:25 | Emergency (ER) | payer OTHER ==
[~2017-01-03] VITALS: Ht 167.6 cm; Wt 102.1 kg
--- NOTE | 2017-01-03 12:58 | Emergency Room Report ---
History of Present Illness General Chief Complaint: Behavioral Complaint Source: Patient (Suzy Crow M.D.) Present Illness HPI 61-year-old female history of hypertension, schizophrenia, presenting with suicidal ideation and monitory hallucinations. Patient states that she has been off her Seroquel and Klonopin for one month, states that her psychiatrist is out of town, now presenting with hearing voices that are telling her to harm herself in harm other people. Patient states that she does not have a plan. Patient denies any drug use, denies any psych hospitalizations in the past. Patient denying any medical complaints at this time (Suzy Crow M.D.) Allergies: Coded Allergies: No Known Allergies (Verified , 07/30/11) Patient History Past Medical History: see triage record Past Surgical History: none Pertinent Family History: none Reviewed Nursing Documentation: PMH: Agreed, PSxH: Agreed (Suzy Crow M.D. ) Nursing Documentation-PMH Past Medical History: No History, Except For Hx Cardiac Problems: Yes Hx Hypertension: Yes Hx Pacemaker: No Hx Asthma: No Hx COPD: No Hx Diabetes: No Hx Cancer: No Hx Dialysis: No Hx Seizures: Yes Hx Dizziness: Yes (Suzy Crow M.D.) Review of Systems All Other Systems: negative except mentioned in HPI (Suzy Crow M.D.) Physical Exam Vital Signs Date Time Temp Pulse Resp B/P (MAP) Pulse Ox O2 Delivery O2 Flow Rate FiO2 01/03/17 12:29 98.6 80 16 137/85 98 Room Air Sp02 EP Interpretation: reviewed, normal General Appearance: normal inspection, well appearing, no apparent distress, alert, GCS 15, non-toxic Head: normocephalic, atraumatic Eyes: bilateral eye normal inspection, bilateral eye PERRL, bilateral eye EOMI ENT: normal ENT inspection, normal pharynx, normal voice, moist mucus membranes Neck: normal inspection, full range of motion, supple Respiratory: normal inspection, lungs clear, normal breath sounds, no respiratory distress, no retraction, no wheezing, speaking full sentences, chest symmetrical Cardiovascular #1: normal inspection, regular rate, rhythm, no edema, normal capillary refill Cardiovascular #2: 2+ radial (R), 2+ radial (L) Gastrointestinal: normal inspection, non tender, soft, non-distended, no guarding Musculoskeletal: normal inspection, back normal, normal range of motion, non- tender Neurologic: normal inspection, alert, oriented x3, responsive, motor strength/ tone normal, sensory intact, normal gait, speech normal Psychiatric: memory normal, anxious, other - Suicidal ideation Skin: normal inspection, normal color, no rash, warm/dry, well hydrated, normal turgor (Suzy Crow M.D.) Medical Decision Making Diagnostic Impression: Primary Impression: Schizophrenia Qualified Codes: F20.9 - Schizophrenia, unspecified Additional Impression: Opiate dependence Qualified Codes: F11.29 - Opioid dependence with unspecified opioid-induced disorder ER Course 61-year-old female presenting with suicidal ideation No medical complaints Plan: Routine labs, tox, psych consult ER course: Patient has remained stable during ED stay. Signed out patient to 61-year-old female multiple visits to the emergency room, never for psych, presenting with active suicidal ideation and auditory hallucinations -Pending labs -Pending evaluation by psych (already aware) Please note that this Emergency Department Report was dictated using Clipikship engineer technology software, occasionally this can lead to erroneous entry secondary to interpretation by the dictation equipment (Suzy Crow M.D.) ER Course 61-year-old female here for psychiatric evaluation. States she is hearing voices and his claim suicidal ideation Patient initially seen and evaluated by Dr Crow; please see her note for full history and physical Labs unremarkable, U. tox positive for opiates patient evaluated by Dr. Pickering (psychiatry); he agrees that patient is not a danger to herself or others. No active suicidal or homicidal ideation. Patient does have history of schizophrenia. She given Seroquel here; be discharged on 10 day course of Seroquel. Advised followup with psychiatry Diagnosis-schizophrenia, opioid dependence Stable and discharged to home prescription for Seroquel. Followup with PMD. Return to ED if symptoms recur or worsen Labs Test 01/03/17 13:30 White Blood Count 4.2 K/UL (4.8-10.8) Red Blood Count 4.25 M/UL (4.20-5.40) Hemoglobin 13.3 G/DL (12.0-16.0) Hematocrit 41.8 % (37.0-47.0) Mean Corpuscular Volume 98 FL (80-99) Mean Corpuscular Hemoglobin 31.3 PG (27.0-31.0) Mean Corpuscular Hemoglobin Concent 31.8 G/DL (32.0-36.0) Red Cell Distribution Width 11.8 % (11.6-14.8) Platelet Count 311 K/UL (150-450) Mean Platelet Volume 6.2 FL (6.5-10.1) Neutrophils (%) (Auto) 43.3 % (45.0-75.0) Lymphocytes (%) (Auto) 44.1 % (20.0-45.0) Monocytes (%) (Auto) 10.7 % (1.0-10.0) Eosinophils (%) (Auto) 0.5 % (0.0-3.0) Basophils (%) (Auto) 1.4 % (0.0-2.0) Urine Color Yellow Urine Appearance Slightly cloudy Urine pH 5 (4.5-8.0) Urine Specific [place] 1.025 (1.005-1.035) Urine Protein Negative (NEGATIVE) Urine Glucose (UA) Negative (NEGATIVE) Urine Ketones Negative (NEGATIVE) Urine Occult Blood Negative (NEGATIVE) Urine Nitrite Negative (NEGATIVE) Urine Bilirubin Negative (NEGATIVE) Urine Urobilinogen 1 MG/DL (0.0-1.0) Urine Leukocyte Esterase 1+ (NEGATIVE) Urine RBC 0-2 /HPF (0 - 2) Urine WBC 2-4 /HPF (0 - 2) Urine Squamous Epithelial Cells Occasional /LPF Urine Bacteria Few /HPF (NONE) Urine Mucus Few /LPF (NONE/OCC) Sodium Level 141 mEQ/L (135-145) Potassium Level 3.4 mEQ/L (3.4-4.9) Chloride Level 100 mEQ/L (98-107) Carbon Dioxide Level 32 mEQ/L (20-30) Anion Gap 9 (5-15) Blood Urea Nitrogen 12 mg/dL (7-23) Creatinine 0.8 mg/dL (0.5-0.9) Estimat Glomerular Filtration Rate > 60 mL/min (>60) Glucose Level 94 mg/dL (74-106) Calcium Level 9.4 mg/dL (8.6-10.2) Total Bilirubin 0.5 mg/dL (0.0-1.2) Aspartate Amino Transf (AST/SGOT) 10 U/L (5-40) Alanine Aminotransferase (ALT/SGPT) 9 U/L (3-33) Alkaline Phosphatase 68 U/L (35-104) Total Protein 7.5 g/dL (6.6-8.7) Albumin 4.3 g/dL (3.5-5.2) Globulin 3.2 g/dL Albumin/Globulin Ratio 1.3 (1.0-2.7) Salicylates Level 3 mg/dL (10-30) Urine Opiates Screen Positive (NEGATIVE) Acetaminophen Level < 10 ug/mL (10-30) Urine Barbiturates Screen Negative (NEGATIVE) Phencyclidine (PCP) Screen Negative (NEGATIVE) Urine Amphetamines Screen Negative (NEGATIVE) Urine Benzodiazepines Screen Negative (NEGATIVE) Urine Cocaine Screen Negative (NEGATIVE) Urine Marijuana (THC) Screen Negative (NEGATIVE) Serum Alcohol < 10 mg/dL (RODRICK SANDHU M.D.) EKG Diagnostic Results Rate: normal Rhythm: NSR ST Segments: no acute changes ASA given to the pt in ED: No (Suzy Crow M.D.) Rhythm Strip Diag. Results EP Interpretation: yes Rate: 67 Rhythm: NSR, no PVC's, no ectopy (Suzy Crow M.D.) Last Vital Signs Date Time Temp Pulse Resp B/P (MAP) Pulse Ox O2 Delivery O2 Flow Rate FiO2 01/03/17 12:29 98.6 80 16 137/85 98 Room Air (Suzy Crow M.D.) Status: improved (RODRICK SANDHU M.D.) Disposition: HOME, SELF-CARE Condition: Stable Signed Out To: Dr Sandhu (Suzy Crow M.D.) Scripts Diphenhydramine 2% Cream* (DIPHENHYDRAMINE 2% CREAM*) 30 Gm Cream.appl 1 APPLIC TOPIC THREE TIMES A DAY, #30 GM 0 Refills Prov: RODRICK SANDHU M.D. 01/03/17 Quetiapine Fumarate* (SEROQUEL*) 100 Mg Tablet 100 MG ORAL BEDTIME, #10 TAB Prov: RODRICK SANDHU M.D. 01/03/17 Referrals: [facility],REFERRING (PCP) Suzy Crow M.D. Jan 03, 2017 12:58 RODRICK SANDHU M.D. Jan 03, 2017 21:23
[2017-01-03 13:38] LABS: BASOPHILS % (AUTO) 1.4 % (0.0-2.0); EOSINOPHILS % (AUTO) 0.5 % (0.0-3.0); LYMPHOCYTES % (AUTO) 44.1 % (20.0-45.0); MEAN CORPUSCULAR HEMOGLOBIN 31.3 PG (27.0-31.0); MEAN CORPUSCULAR HGB CONC 31.8 G/DL (32.0-36.0); MEAN CORPUSCULAR VOLUME 98 FL (80-99); MEAN PLATELET VOLUME 6.2 FL (6.5-10.1); MONOCYTES % (AUTO) 10.7 % (1.0-10.0); NEUTROPHILS % (AUTO) 43.3 % (45.0-75.0); PLATELET COUNT 311 K/UL (150-450); RED BLOOD COUNT 4.25 M/UL (4.20-5.40); RED CELL DISTRIBUTION WIDTH 11.8 % (11.6-14.8); WHITE BLOOD COUNT 4.2 K/UL (4.8-10.8)
[2017-01-03 13:42] LABS: APPEARANCE,URINE SLIGHTLY CLOUDY; KETONES,URINE NEGATIVE (NEGATIVE); LEUKOCYTE ESTERASE ,URINE 1+ (NEGATIVE); NITRITE,URINE NEGATIVE (NEGATIVE); PH,URINE 5 (4.5-8.0); PROTEIN,URINE NEGATIVE (NEGATIVE); UROBILINOGEN,URINE 1 MG/DL (0.0-1.0)
[2017-01-03 13:49] LABS: BACTERIA,URINE FEW /HPF; MUCUS,URINE FEW /LPF (NONE/OCC); RBC,URINE 0-2 /HPF (0 - 2); SQUAMOUS EPITHELIAL CELL,UR OCCASIONAL /LPF (NONE/OCC)
[2017-01-03 13:55] LABS: ACETAMINOPHEN < 10 ug/mL (10-30); ALANINE AMINOTRANSFERASE 9 U/L (3-33); ALBUMIN/GLOBULIN RATIO 1.3 (1.0-2.7); ALCOHOL < 10 mg/dL; ANION GAP 9 (5-15); ASPARTATE AMINO TRANSFERASE 10 U/L (5-40); CALCIUM 9.4 mg/dL (8.6-10.2); CARBON DIOXIDE 32 mEQ/L (20-30); CHLORIDE 100 mEQ/L (98-107); CREATININE 0.8 mg/dL (0.5-0.9); GLOMERULAR FILTRATION RATE > 60 mL/min (>60); HEMOLYSIS 1; POTASSIUM 3.4 mEQ/L (3.4-4.9); SODIUM 141 mEQ/L (135-145); TOTAL PROTEIN 7.5 g/dL (6.6-8.7)
[2017-01-03 14:30] VITALS: BP 147/69
--- NOTE | 2017-01-03 15:54 | Consultation ---
Consultation HPI 61-year-old female history of hypertension, schizophrenia, presenting with suicidal ideation and monitory hallucinations. the pt was uncooperative and angry would not answer my questions. the pt initially stated that she was suicidal and was hearing voices then she stated that give me my medication. when I ask what the voices are telling her or what she hears, she became angry and became guarded. The pt raised her voice and stated "give me my medication..seroquel and klonopin...I want to go..my son will pick me up..no you may not talk to my son." the charge nurse, Padmini was present for the most part. Target sxs: irritable mood, anger, auditory hallucination (however not able to elaborate what she hears), poor insight and now denies SI. the pt stated that she always comes to [facility] for pain meds. the pt denied any past psych hx. the pt stated that she has a psychiatrist, Dr. Artis. the pt stated that I gave her a [place] and she wants [place]. the pt is reluctant to provide any hx and stated "look at my medical record." the pt refused to take any other antipsychotics. Allergies: Coded Allergies: No Known Allergies (Verified , 07/30/11) Past Medical History no psych hospt. has a psychiatrist for schizo General Appearance: Disheveled Orientation: Time, Place, Person, Situation Attention Span Description: Poor Mood/Memory: Angry Affect: Restricted Thought Process: Linear Perception: Hallucinations Speech: Normal in Volume & Rate Intelligence: Average Insight/ Judgement: Fair Impulse Control: Fair Assessment/Plan Status: stable Assessment/Plan pain meds dependence, hx of schizo -seroquel 100mg q -no 5150 -dc home with Farida Andres M.D. Jan 03, 2017 15:54
[2017-01-03 16:00] VITALS: BP 146/77
[2017-01-03] MEDS ORDERED: QUETIAPINE FUM100 MG ORAL (16:27)
[2017-01-03] MEDS ORDERED: DIPHENHYDRAMINE30 GM TOPIC (16:47)
[2017-01-03 16:49] VITALS: BP 146/77
--- NOTE | 2017-01-04 19:04 | Cardiology Report ---
APPROVED REPORT EKG Measurement Heart [id number] [place] [id number] Normal sinus rhythm Low voltage QRS Borderline ECG
== END 2017-01-03 16:50 | disposition home or self-care (01) ==
LOC: EDBD 12:25 → EMR 12:47
DX: F20.9 Schizophrenia, unspecified (principal); F11.20 Opioid dependence, uncomplicated; I10 Essential (primary) hypertension
CPT/HCPCS: 36415; 80053; 80300; 80329; 81003; 85025; 93005; 99284

== ENCOUNTER 2017-02-20 14:40 | Emergency (ER) | payer OTHER ==
[~2017-02-20] VITALS: Ht 170.2 cm; Wt 122.5 kg
[~2017-02-20 14:40] MED LIST changes: +DEBROX15 M1 LEFT EAR; +DIPHENHYDRAMINE30 GM TOPIC; +NKM; +NORCO 5-325 TA1 EAC1 ORAL; +PHENOBARBITAL15 MG PO; +QUETIAPINE FUM100 MG ORAL; +SEROQUEL100 MG ORAL; +ZYRTEC10 MG ORAL; +[UNRECOGNIZED DRUG - OTHER] TP
[2017-02-20] MEDS ORDERED: DiphenhydrAMINE 50mg/ml Inj IVP ONE (15:30)
[2017-02-20] MEDS ORDERED: Metoclopramide 10mg/2ml Inj IVP ONE (15:30)
[2017-02-20] MEDS ORDERED: HYDROmorphone 1mg/ml Carpuject IVP ONE (15:30)
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
[2017-02-20 16:05] LABS: APPEARANCE,URINE CLEAR; BILIRUBIN, URINE NEGATIVE (NEGATIVE); GLUCOSE, URINE (UA) NEGATIVE (NEGATIVE); KETONES,URINE NEGATIVE (NEGATIVE); LEUKOCYTE ESTERASE ,URINE 3+ (NEGATIVE); NITRITE,URINE NEGATIVE (NEGATIVE); PH,URINE 7 (4.5-8.0); PROTEIN,URINE NEGATIVE (NEGATIVE); UROBILINOGEN,URINE 4 MG/DL (0.0-1.0)
[2017-02-20 16:08] LABS: COLOR,URINE YELLOW
[2017-02-20 16:09] LABS: BASOPHILS % (AUTO) 1.2 % (0.0-2.0); EOSINOPHILS % (AUTO) 0.7 % (0.0-3.0); HEMATOCRIT 35.6 % (37.0-47.0); LYMPHOCYTES % (AUTO) 39.3 % (20.0-45.0); MEAN CORPUSCULAR VOLUME 97 FL (80-99); MONOCYTES % (AUTO) 9.1 % (1.0-10.0); NEUTROPHILS % (AUTO) 49.8 % (45.0-75.0); PLATELET COUNT 230 K/UL (150-450); RED BLOOD COUNT 3.65 M/UL (4.20-5.40); RED CELL DISTRIBUTION WIDTH 12.3 % (11.6-14.8); WHITE BLOOD COUNT 4.5 K/UL (4.8-10.8)
[2017-02-20 16:28] LABS: ALANINE AMINOTRANSFERASE 15 U/L (12-78); ALBUMIN 3.4 G/DL (3.4-5.0); ALBUMIN/GLOBULIN RATIO 0.8 (1.0-2.7); ALKALINE PHOSPHATASE 78 U/L (46-116); ANION GAP 6 mmol/L (5-15); ASPARTATE AMINO TRANSFERASE 27 U/L (15-37); BILIRUBIN,TOTAL 0.4 MG/DL (0.2-1.0); BLOOD UREA NITROGEN 24 mg/dL (7-18); CALCIUM 9.3 MG/DL (8.5-10.1); CARBON DIOXIDE 30 MMOL/L (21-32); CHLORIDE 104 MMOL/L (98-107); CREATININE 0.6 MG/DL (0.55-1.30); POTASSIUM 5.1 MMOL/L (3.5-5.1); SODIUM 140 MMOL/L (136-145)
[2017-02-20] MEDS ORDERED: cefTRIAXone 1 GM in NS 55 ML IVPB ONE (16:30)
[2017-02-20 16:35] LABS: CREATINE KINASE 133 U/L (26-308)
[2017-02-20 17:40] VITALS: BP 135/76
[2017-02-20 17:57] LABS: ANION GAP 7 mmol/L (5-15); BLOOD UREA NITROGEN 23 mg/dL (7-18); CALCIUM 9.2 MG/DL (8.5-10.1); CARBON DIOXIDE 28 MMOL/L (21-32); CHLORIDE 103 MMOL/L (98-107); CREATININE 0.8 MG/DL (0.55-1.30); POTASSIUM 3.9 MMOL/L (3.5-5.1); SODIUM 138 MMOL/L (136-145)
[2017-02-20] MEDS ORDERED: ACETAMINOPHEN-1 EAC2 ORAL (18:42)
[2017-02-20] MEDS ORDERED: NITROFURANTOIN100 M2 ORAL (18:42)
[2017-02-20] MEDS ORDERED: AMLODIPINE BESY10 MG ORAL (18:42)
[2017-02-20 19:03] VITALS: BP 135/76
--- NOTE | 2017-02-21 11:09 | Diagnostic Imaging Report ---
Indication: Cough Technique: CHEST 1 VIEW Comparison: 10/16/15. Findings: The cardiomediastinal silhouette is normal. The lungs are clear. There is no evidence of pleural fluid. The bones are unremarkable. Impression: Normal chest.
--- NOTE | 2017-02-22 20:21 | Cardiology Report ---
APPROVED REPORT EKG Measurement Heart [id number] [place] 154P54 [id number] Normal sinus rhythm Normal ECG
--- NOTE | 2017-02-22 20:21 | Cardiology Report ---
APPROVED REPORT EKG Measurement Heart [id number] [place] 154P54 [id number] Normal sinus rhythm Normal ECG
--- NOTE | 2017-02-22 20:21 | Cardiology Report ---
APPROVED REPORT EKG Measurement Heart [id number] [place] 154P54 [id number] Normal sinus rhythm Normal ECG
== END 2017-02-20 19:07 | disposition home or self-care (01) ==
LOC: EDBD 14:40 → EMR 15:11
DX: M25.562 Pain in left knee (principal); N39.0 Urinary tract infection, site not specified; I10 Essential (primary) hypertension; R51 Headache; R05 Cough; G89.29 Other chronic pain; M47.816 Spondylosis without myelopathy or radiculopathy, lumbar region
CPT/HCPCS: 36415; 71010; 80048; 80053; 80307; 81003; 82550; 83880; 84484; 85025; 85610; 85651; 85730; 87086; 93005; 96374; 96375; 99284; J0696; J1170; J1200; J2765

== ENCOUNTER 2017-04-28 19:11 | Emergency (ER) | payer OTHER ==
[~2017-04-28] VITALS: Ht 162.6 cm; Wt 136.1 kg
[~2017-04-28 19:11] MED LIST changes: +ACETAMINOPHEN-1 EAC2 ORAL
[2017-04-28 19:19] VITALS: BP 136/84
--- NOTE | 2017-04-28 20:29 | Emergency Room Report ---
History of Present Illness General Chief Complaint: Flu Like Symptoms Present Illness HPI 61 YO Female Pt. presents to the ED c/o dry cough and chest congestion x 2 days. pt. denies fevers, reports chills and body-aches that are 5/10 in severity. Denies high fevers, lethargy, neck stiffness, irritability, dehydration, N/V/D. Denies Cp, Palpitations, LOC, AMS, seizures, paresthesias, or changes in Hearing or vision, no Sudden severe CABELLO. Pt. did not mention rectal rash during evaluation. Allergies: Coded Allergies: No Known Allergies (Verified , 07/30/11) Patient History Past Medical History: see triage record Past Surgical History: none Pertinent Family History: none Now: No Immunizations: UTD - no flu vaccine Reviewed Nursing Documentation: PMH: Agreed, PSxH: Agreed Nursing Documentation-PMH Hx Cardiac Problems: Yes Hx Hypertension: Yes Hx Pacemaker: No Hx Asthma: No Hx COPD: No Hx Diabetes: No Hx Cancer: No Hx Dialysis: No Hx Seizures: Yes Hx Dizziness: Yes Review of Systems All Other Systems: negative except mentioned in HPI Physical Exam Vital Signs Date Time Temp Pulse Resp B/P (MAP) Pulse Ox O2 Delivery O2 Flow Rate FiO2 04/28/17 19:17 99.9 101 20 136/84 96 Room Air Sp02 EP Interpretation: reviewed, normal General Appearance: no apparent distress, alert, GCS 15, non-toxic Head: normocephalic, atraumatic Eyes: bilateral eye normal inspection, bilateral eye PERRL ENT: hearing grossly normal, normal voice Neck: full range of motion Respiratory: chest non-tender, speaking full sentences, wheezing - scant bilateral wheezes Cardiovascular #1: regular rate, rhythm, normal capillary refill Rectal: deferred Genitourinary: normal inspection Musculoskeletal: back normal, gait/station normal, normal range of motion, non- tender Neurologic: alert, oriented x3, responsive, motor strength/tone normal, sensory intact, speech normal, grossly normal Psychiatric: judgement/insight normal Skin: normal color, no rash, warm/dry, well hydrated Lymphatic: no adenopathy Medical Decision Making PA Attestation Dr. mauricio is my supervising Physician whom patient management has been discussed with. Diagnostic Impression: Primary Impression: Bronchitis ER Course 61 YO Female Pt. presents to the ED c/o dry cough and chest congestion x 2 days. pt. denies fevers, reports chills and body-aches that are 5/10 in severity. Denies high fevers, lethargy, neck stiffness, irritability, dehydration, N/V/D. Denies Cp, Palpitations, LOC, AMS, seizures, paresthesias, or changes in Hearing or vision, no Sudden severe CABELLO. Pt. did not mention rectal rash during evaluation. Ddx considered but are not limited to URI, pneumonia, PE, strep pharyngitis, meningitis just to name a few. Vital signs: Pt.is afebrile VS are WNL H&PE are most consistent with bronchitis ORDERS: none required at this time, the diagnosis is clinical ED INTERVENTIONS: -Tylenol PO for body-aches DISCHARGE: At this time pt. is stable for d/c to home. Will provide printed patient care instructions, and any necessary prescriptions. Care plan and follow up instructions have been discussed with the patient prior to discharge. Last Vital Signs Date Time Temp Pulse Resp B/P (MAP) Pulse Ox O2 Delivery O2 Flow Rate FiO2 04/28/17 19:19 99.9 101 20 136/84 96 Room Air Disposition: HOME, SELF-CARE Condition: Stable Scripts Albuterol Sulfate* (ALBUTEROL SULFATE MDI*) 8.5 Gm Hfa.aer.ad 2 PUFF INH Q4H, #1 INH 0 Refills Prov: Anisha Choe P.A. 04/28/17 Guaifenesin (Guaifenesin) 1,200 Mg Tab.er.12h 1200 MG PO BID, #20 TAB Prov: Anisha Choe P.A. 04/28/17 Acetaminophen* (TYLENOL EXTRA STRENGTH*) 500 Mg Tablet 500 MG ORAL Q6H Y for Mild Pain/Temp > 100.5, #20 TAB 0 Refills Prov: Anisha Choe P.A. 04/28/17 Codeine/Promethazine Hcl* (PROMETHAZINE-CODEINE SYRUP*) 118 Ml Syrup 5 ML ORAL Q6H Y for For Cough, #118 ML 0 Refills Prov: Anisha Choe P.A. 04/28/17 Referrals: [facility],REFERRING (PCP) Patient Instructions: Acute Bronchitis, [id number] Additional Instructions: Take medications as directed. Follow up with a Primary Care Provider in 3-5 days, even if your symptoms have resolved. --Please review list of primary care clinics, if you do not already have a primary care provider Return sooner to ED if new symptoms occur, or current symptoms become worse. Do not drink alcohol, drive, or operate heavy machinery while taking Cough Syrup as this may cause drowsiness. - Please note that this Emergency Department Report was dictated using j-Grabmetal tester technology software, occasionally this can lead to erroneous entry secondary to interpretation by the dictation equipment. Anisha Choe Apr 28, 2017 20:29
[2017-04-28] MEDS ORDERED: GUAIFENESIN1200 MG PO (20:31)
[2017-04-28] MEDS ORDERED: PROMETHAZINE-C118 M1 ORAL (20:31)
[2017-04-28] MEDS ORDERED: ALBUTEROL SULF8.5 GM INH (20:31)
[2017-04-28] MEDS ORDERED: TYLENOL EXTRA500 MG ORAL (20:31)
[2017-04-28 20:48] VITALS: BP 121/75
== END 2017-04-28 20:48 | disposition home or self-care (01) ==
LOC: EMR 19:54
DX: J40 Bronchitis, not specified as acute or chronic (principal); I10 Essential (primary) hypertension
CPT/HCPCS: 99283

== ENCOUNTER 2018-03-07 09:56 | Emergency (ER) | payer OTHER ==
[~2018-03-07] VITALS: Ht 167.6 cm; Wt 112.5 kg
[~2018-03-07 09:56] MED LIST changes: +ALBUTEROL SULF8.5 GM INH; +GUAIFENESIN1200 MG PO; +PROMETHAZINE-C118 M1 ORAL
[2018-03-07] MEDS: Sodium Chloride 500ML 500 ML IV ONE ×2 (10:16→10:34)
--- NOTE | 2018-03-07 10:19 | Emergency Room Report ---
History of Present Illness General Chief Complaint: Headache Source: Patient, EMS Present Illness HPI Patient sense with complaints of headache She reports that she's had migraines off and on over the past several weeks She had experienced some chest pain 2 weeks ago as well However currently denies any chest pain Denies any abdominal pain Denies any vomiting but she felt nauseated Denies any focal weakness denies any neuropathy Patient reports that she has had headaches most of her life also increased stress over the past few weeks Allergies: Coded Allergies: No Known Allergies (Verified , 07/30/11) Patient History Past Medical History: see triage record Pertinent Family History: none Reviewed Nursing Documentation: PMH: Agreed; PSxH: Agreed Nursing Documentation-PMH Past Medical History: No History, Except For Hx Cardiac Problems: Yes Hx Hypertension: Yes Hx Pacemaker: No Hx Asthma: No Hx COPD: No Hx Diabetes: No Hx Cancer: No Hx Dialysis: No History Of Psychiatric Problem: Yes Hx Seizures: Yes Hx Dizziness: Yes Review of Systems All Other Systems: negative except mentioned in HPI Physical Exam Vital Signs Date Time Temp Pulse Resp B/P (MAP) Pulse Ox O2 Delivery O2 Flow Rate FiO2 03/07/18 09:56 98.4 99 16 131/81 99 Room Air Sp02 EP Interpretation: reviewed, normal General Appearance: well appearing, no apparent distress Head: normocephalic, atraumatic Eyes: bilateral eye PERRL, bilateral eye EOMI ENT: hearing grossly normal, normal pharynx, TMs + canals normal, uvula midline Neck: full range of motion, supple, no meningismus, no bony tend Respiratory: lungs clear, normal breath sounds, no rhonchi, no respiratory distress, no retraction, no accessory muscle use Cardiovascular #1: normal peripheral pulses, regular rate, rhythm, no edema, no gallop, no JVD, no murmur Gastrointestinal: normal bowel sounds, non tender, soft, no mass, no organomegaly, non-distended, no guarding, no hernia, no pulsatile mass, no rebound Genitourinary: no CVA tenderness Musculoskeletal: normal inspection Neurologic: oriented x3, responsive, tourist information officer III-XII nml as tested, motor strength/ tone normal, sensory intact Psychiatric: mood/affect normal Skin: normal color, no rash, warm/dry, palpation normal Lymphatic: normal inspection, no adenopathy Medical Decision Making Diagnostic Impression: Primary Impression: Headache ER Course Multiple differentials including but not limited to neurological, neurosurgical infectious pathology entertained Patient had initial blood work initiated All within normal limits there are no signs of any neurological deficits or other acute findings requiring emergency imaging Patient did better with her headache with intervention Upon time of discharge patient is requesting [place] It was discussed with her that review of CURES reveals multiple providers writing prescription for this medication and that given the safety in pain medicine prescribing and [place] it would be in her best benefit to follow- up with single primary physician , Labs Test 03/07/18 10:20 White Blood Count 4.4 K/UL (4.8-10.8) Red Blood Count 4.11 M/UL (4.20-5.40) Hemoglobin 12.8 G/DL (12.0-16.0) Hematocrit 37.8 % (37.0-47.0) Mean Corpuscular Volume 92 FL (80-99) Mean Corpuscular Hemoglobin 31.1 PG (27.0-31.0) Mean Corpuscular Hemoglobin Concent 33.9 G/DL (32.0-36.0) Red Cell Distribution Width 11.9 % (11.6-14.8) Platelet Count 271 K/UL (150-450) Mean Platelet Volume 5.6 FL (6.5-10.1) Neutrophils (%) (Auto) 62.0 % (45.0-75.0) Lymphocytes (%) (Auto) 28.4 % (20.0-45.0) Monocytes (%) (Auto) 7.7 % (1.0-10.0) Eosinophils (%) (Auto) 0.4 % (0.0-3.0) Basophils (%) (Auto) 1.5 % (0.0-2.0) Sodium Level 133 MMOL/L (136-145) Potassium Level 3.4 MMOL/L (3.5-5.1) Chloride Level 97 MMOL/L (98-107) Carbon Dioxide Level 27 MMOL/L (21-32) Anion Gap 9 mmol/L (5-15) Blood Urea Nitrogen 17 mg/dL (7-18) Creatinine 1.0 MG/DL (0.55-1.30) Estimat Glomerular Filtration Rate > 60 mL/min (>60) Glucose Level 135 MG/DL (74-106) Calcium Level 9.3 MG/DL (8.5-10.1) Total Bilirubin 0.3 MG/DL (0.2-1.0) Aspartate Amino Transf (AST/SGOT) 10 U/L (15-37) Alanine Aminotransferase (ALT/SGPT) 18 U/L (12-78) Alkaline Phosphatase 79 U/L (46-116) Total Creatine Kinase 91 U/L (26-308) Creatine Kinase MB 0.7 NG/ML (0.0-3.6) Creatine Kinase MB Relative Index 0.7 Troponin I 0.017 ng/mL (0.000-0.056) Total Protein 8.2 G/DL (6.4-8.2) Albumin 3.4 G/DL (3.4-5.0) Globulin 4.8 g/dL Albumin/Globulin Ratio 0.7 (1.0-2.7) Last Vital Signs Date Time Temp Pulse Resp B/P (MAP) Pulse Ox O2 Delivery O2 Flow Rate FiO2 03/07/18 09:56 98.4 99 16 131/81 99 Room Air Status: improved Disposition: HOME, SELF-CARE Condition: Improved Scripts Tramadol Hcl* (ULTRAM*) 50 Mg Tablet 50 MG ORAL Q6H PRN for For Pain, #10 TAB 0 Refills Prov: Steven Alaniz DO 03/07/18 Additional Instructions: Patient is provided with the discharge instructions notified to follow up with primary doctor in the next 2-3 days otherwise return to the er with any worsening symptoms. Please note that this report is being documented using [employer] technology. This can lead to erroneous entry secondary to incorrect interpretation by the dictating instrument. Steven Alaniz DO Mar 07, 2018 10:19
[2018-03-07] MEDS: DiphenhydrAMINE 50mg/ml Inj IVP ONE ×2 (10:30→10:34)
[2018-03-07] MEDS ORDERED: Norco 5mg/325mg tab ORAL ONE (10:30)
[2018-03-07] MEDS: Ketorolac 30mg Inj IV ONE ×2 (10:30→10:34)
[2018-03-07 11:02] LABS: BASOPHILS % (AUTO) 1.5 % (0.0-2.0); EOSINOPHILS % (AUTO) 0.4 % (0.0-3.0); HEMATOCRIT 37.8 % (37.0-47.0); HEMOGLOBIN 12.8 G/DL (12.0-16.0); LYMPHOCYTES % (AUTO) 28.4 % (20.0-45.0); MEAN CORPUSCULAR VOLUME 92 FL (80-99); MONOCYTES % (AUTO) 7.7 % (1.0-10.0); PLATELET COUNT 271 K/UL (150-450); RED BLOOD COUNT 4.11 M/UL (4.20-5.40); RED CELL DISTRIBUTION WIDTH 11.9 % (11.6-14.8); WHITE BLOOD COUNT 4.4 K/UL (4.8-10.8)
[2018-03-07 11:19] LABS: ANION GAP 9 mmol/L (5-15); BLOOD UREA NITROGEN 17 mg/dL (7-18); CALCIUM 9.3 MG/DL (8.5-10.1); CARBON DIOXIDE 27 MMOL/L (21-32); CHLORIDE 97 MMOL/L (98-107); POTASSIUM 3.4 MMOL/L (3.5-5.1); SODIUM 133 MMOL/L (136-145)
[2018-03-07 11:31] LABS: ALANINE AMINOTRANSFERASE 18 U/L (12-78); ALBUMIN 3.4 G/DL (3.4-5.0); ALBUMIN/GLOBULIN RATIO 0.7 (1.0-2.7); ALKALINE PHOSPHATASE 79 U/L (46-116); ASPARTATE AMINO TRANSFERASE 10 U/L (15-37); BILIRUBIN,TOTAL 0.3 MG/DL (0.2-1.0); CKMB 0.7 NG/ML (0.0-3.6); CREATINE KINASE 91 U/L (26-308)
[2018-03-07] MEDS ORDERED: TRAMADOL HCL50 MG ORAL (11:39)
[2018-03-07] MEDS ORDERED: Ketorolac 60mg Inj IM ONE (12:00)
[2018-03-07 12:17] VITALS: BP 131/81
--- NOTE | 2018-03-08 08:46 | Cardiology Report ---
APPROVED REPORT EKG Measurement Heart [id number] Normal sinus rhythm Possible Inferior infarct, age undetermined Possible Anterior infarct, age undetermined Abnormal ECG
== END 2018-03-07 12:25 | disposition home or self-care (01) ==
LOC: EDBD 09:56 → EMR 10:30
DX: R51 Headache (principal); I10 Essential (primary) hypertension
CPT/HCPCS: 36415; 80053; 82550; 82553; 84484; 85025; 93005; 96372; 99282; J1200; J7040

== ENCOUNTER 2019-06-10 18:34 | Emergency (ER) | payer MEDICARE, OTHER ==
[~2019-06-10] VITALS: Ht 165.1 cm; Wt 124.7 kg
[2019-06-10] MEDS ORDERED: Ketorolac 30mg Inj IM ONE (18:45)
[2019-06-10] MEDS ORDERED: Methocarbamol 750mg tab ORAL ONE (18:45)
[2019-06-10 18:50] VITALS: BP 134/75
--- NOTE | 2019-06-10 18:55 | NUR ---
ED Nurse Note: Patient was brought by [facility] from home due to both legs pain for over 6 months. Patient denies any recent injury. Patient presented calm, AAO x4, VSS at this time.
--- NOTE | 2019-06-10 19:19 | Emergency Room Report ---
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 Management gabapentin, tramadol to sleep. Patient asking for. Patient seen by pain management drug-seeking behavior reports that she is out of her. Patient reports Toradol and Robaxin did not help her. Patient settles for 1 dose of [place] 10 today daily. No new injury has occurred. Patient stable. Denies chest pain shortness of breath headache and dizziness at this time. Allergies: Coded Allergies: No Known Allergies (Verified , 07/30/11) Patient History Past Medical History: see triage record Past Surgical History: unable to obtain Pertinent Family History: none Now: No Immunizations: UTD Reviewed Nursing Documentation: PMH: Agreed; PSxH: Agreed Nursing Documentation-PMH Past Medical History: No History, Except For Hx Cardiac Problems: Yes Hx Hypertension: Yes Hx Pacemaker: No Hx Asthma: No Hx COPD: No Hx Diabetes: No Hx Cancer: No Hx Dialysis: No Hx Seizures: Yes Hx Dizziness: Yes Review of Systems All Other Systems: negative except mentioned in HPI Physical Exam Vital Signs Date Time Temp Pulse Resp B/P (MAP) Pulse Ox O2 Delivery O2 Flow Rate FiO2 06/10/19 18:33 97.9 91 16 134/75 (94) 99 Room Air Sp02 EP Interpretation: reviewed, normal General Appearance: no apparent distress, alert, GCS 15, non-toxic Head: normocephalic, atraumatic Eyes: bilateral eye normal inspection, bilateral eye PERRL ENT: hearing grossly normal, normal pharynx, no angioedema, normal voice Neck: full range of motion, supple/symm/no masses Respiratory: chest non-tender, lungs clear, normal breath sounds, no rhonchi, no wheezing, speaking full sentences Cardiovascular #1: regular rate, rhythm, no edema, no murmur Cardiovascular #2: 2+ dorsalis pedis (R), 2+ dorsalis pedis (L) Gastrointestinal: normal bowel sounds, non tender, soft, non-distended, no guarding, no rebound Genitourinary: no CVA tenderness Musculoskeletal: back normal, no calf tenderness, pelvis stable Neurologic: alert, motor strength/tone normal, oriented x3, sensory intact, responsive, speech normal Psychiatric: judgement/insight normal, memory normal, mood/affect normal, no suicidal/homicidal ideation Skin: no rash Lymphatic: no adenopathy Medical Decision Making PA Attestation All diagnoses and treatment plans were reviewed and discussed with my supervising physician Dr. 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 Management gabapentin, tramadol to sleep. Patient asking for. Patient seen by pain management drug-seeking behavior reports that she is out of her. Patient reports Toradol and Robaxin did not help her. Patient settles for 1 dose of [place] 10 today daily. No new injury has occurred. Patient stable. Denies chest pain shortness of breath headache and dizziness at this time. Ddx considered but are not limited to: Lumbar spine sprain, strain, fracture, contusion, neuropathy, chronic pain Vital signs: are WNL, pt. is afebrile H&PE are most consistent with: Chronic pain, medication refill for hypertension ORDERS: Motrin, Robaxin, Norvasc ER intervention: Toradol, Robaxin, norco 10 DISCHARGE: At this time pt. is stable for d/c to home. Will provide printed patient care instructions, and any necessary prescriptions. Care plan and follow up instructions have been discussed with the patient prior to discharge. Patient to follow with pain management at this time patient has been having this pain for 6 months is considered chronic, drug-seeking behavior noted, Last Vital Signs Date Time Temp Pulse Resp B/P (MAP) Pulse Ox O2 Delivery O2 Flow Rate FiO2 06/10/19 18:56 78 156/89 06/10/19 18:50 97.9 16 99 Room Air Disposition: HOME, SELF-CARE Condition: Stable Scripts Methocarbamol* (ROBAXIN-500*) 500 Mg Tablet 500 MG ORAL TID PRN for For Pain, #15 TAB 0 Refills Prov: GuanakitoelimoghaLetty cruz PA 06/10/19 Ibuprofen* (MOTRIN*) 600 Mg Tablet 600 MG ORAL Q8H PRN for For Pain, #30 TAB 0 Refills Prov: MasoudmogLetty zaragoza PA 06/10/19 Amlodipine Besylate (Norvasc) 10 Mg Tablet 10 MG ORAL DAILY, #20 TAB Prov: GuanakitoelimogLetty zaragoza PA 06/10/19 Patient Instructions: Chronic Pain Additional Instructions: Patient needs to be followed up by pain management at this time patient is seeking controlled substance at the emergency department is currently on gabapentin patient has chronic pain and needs to be followed up by pain management. If worsening symptoms return to the emergency room Letty Tang Jun 10, 2019 19:19
[2019-06-10] MEDS ORDERED: ROBAXIN-500MG ORAL (19:20)
[2019-06-10] MEDS ORDERED: IBUPROFEN600 MG ORAL (19:20)
[2019-06-10] MEDS ORDERED: NORVASC10 MG ORAL (19:20)
[2019-06-10 19:45] VITALS: BP 151/79
[2019-06-10] MEDS ORDERED: HYDROcodone/Acetamin 10/325 tab ORAL ONE (19:45)
[2019-06-10 19:50] VITALS: BP 156/89
--- NOTE | 2019-06-10 19:50 | NUR ---
ER DISCHARGE NOTE: Patient is cleared to be discharged per ERMD, pt is aox4, on room air, with stable vital signs. pt was given dc and prescription instructions, pt was able to verbalize understanding, pt id band removed without complications. pt is able to ambulate with steady gait. pt took all belongings.
== END 2019-06-10 19:50 | disposition home or self-care (01) ==
LOC: EDBD 18:34 → EMR 19:00
DX: G89.29 Other chronic pain (principal); Z76.0 Encounter for issue of repeat prescription; I10 Essential (primary) hypertension
CPT/HCPCS: 96372; 99283; J1885